=== PATIENT | male | born 1960 | race American Indian/Alaskan Native ===

== ENCOUNTER 2021-06-14 01:41 | Emergency (ER) | payer OTHER ==
[~2021-06-14] VITALS: Ht 162.6 cm; Wt 86.2 kg
[2021-06-14] MEDS ORDERED: ALLOPURINOL100 MG PO (02:02)
[2021-06-14] MEDS ORDERED: IRON18 MG PO (02:03)
[2021-06-14] MEDS ORDERED: ZOLOFT25 MG PO (02:03)
[2021-06-14] MEDS ORDERED: DIFLUCAN50 MG PO (02:04)
[2021-06-14] MEDS ORDERED: VITAMIN B-1250 MCG PO (02:04)
--- NOTE | 2021-06-18 13:41 | EKG ---
[facility] [address] [facility] [place] [address] Signed Normal sinus rhythm Left axis deviation Moderate voltage criteria for LVH, may be normal variant ( R in aVL , Leonard product ) Abnormal ECG No previous ECGs available Confirmed by DRE BILLINGSLEY MD ([id number] on 06/18/2021 1:41:03 PM Electronically Signed By: DRE BILLINGSLEY MD 06/18/21 1341 PATIENT NAME: LYUBOV VALLEJO Electrocardiogram DATE OF : 58 PHYSICIAN: DRE BILLINGSLEY MD REPORT #: [id number] REPORT IS CONFIDENTIAL AND NOT TO BE RELEASED WITHOUT AUTHORIZATION
== END 2021-06-14 03:16 | disposition home or self-care (01) ==
LOC: ED 01:41
DX: R06.00 Dyspnea, unspecified (principal); J45.909 Unspecified asthma, uncomplicated; Z79.899 Other long term (current) drug therapy; Z20.822 Contact with and (suspected) exposure to COVID-19
CPT/HCPCS: 36415; 71045; 80053; 83880; 84484; 85025; 85379; 93005; 93010; 99285-25; C9803; U0003